=== PATIENT | male | born 1975 | race African-American/Black ===

== ENCOUNTER 2025-01-29 16:14 | Emergency (ER) | payer OTHER, SELFPAY ==
[2025-01-29 16:20] VITALS: BP 155/112; PULSE 88; PULSE 93; RESP 16; TEMP 36.5; O2SAT 98; O2SAT 99; BMI 32.7
--- NOTE | 2025-01-29 16:28 | ED.GENADULT ---
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 Was wearing respirator, but still having respiratory symptoms now. Respirator was a previously used item. Current symptoms: raspy , cough, tight chest, shaky. Dx asthma. 49-year-old man presenting to the emergency department with concern of allergic reaction. Was spraying pesticide called [employer] and began feeling more short of breath tightness chest and shaky. Underlying history of asthma and allergies otherwise. Does use Flonase and takes daily Zyrtec. Albuterol as rescue inhaler. Does have a spot that has shown up on his right forearm when I inquire about rash but that was couple days ago. Unclear etiology. No noted nausea. No abdominal cramping. No fever cough cold symptoms of unusual allergies. Was wearing a respirator. Has also been quite warm outside today. Related Data Home Medications ?Medication ?Instructions ?Recorded ?Confirmed albuterol 90 mcg/actuation aerosol mcg inhalation 01/29/25 inhaler atenolol .ROUTE 01/29/25 cetirizine .ROUTE 01/29/25 Previous Rx's ?Medication ?Instructions ?Recorded albuterol sulfate 90 mcg/actuation 2 inh inhalation Q2-3H PRN 01/29/25 aerosol inhaler shortness of breath or wheezing #6.7 grams prednisone 20 mg tablet 40 mg (2 x 20 mg) PO DAILY 3 days 01/29/25 #6 tabs Allergies Allergy/AdvReac Type Severity Reaction Status Date / Time lisinopril Allergy Unknown Verified 01/29/25 16:19 Review of Systems Status of ROS: Reports: 6 or more systems reviewed and unremarkable except as noted in History and below Exam Narrative: Exam Narrative: Pleasant. Large man. Numerous tattoos. Mildly labored in his breathing. Diminished breath sounds with end-expiratory wheezing and diffuse trace crepitus. Not tachypneic. Heart in regular rate and rhythm without murmur rub or gallop. Extremities well perfused without edema. There is a subcentimeter reddish macule on the right inner mid forearm. Oropharynx is unremarkable other than some cobblestoning. There is no stridor. Const: Vital Signs, click to edit/add: Vital Signs - 24 hr 01/29/25 16:20 Temperature 97.7 F Pulse Rate [Pulse Oximeter] 88 Respiratory Rate 16 Blood Pressure [Ri ght Upper Arm] 155/112 H Pulse Oximetry 99 Oxygen Delivery Me thod Room Air Documenting provider has reviewed patient's vital signs: yes Course Vital Signs Vital signs: Initial Vital Signs Temperature 97.7 F 01/29/25 16:20 Temperature Source Temporal Artery Scan 01/29/25 16:20 Pulse Rate 93 01/29/25 16:20 Respiratory Rate 16 01/29/25 16:20 Blood Pressure 155/112 H 01/29/25 16:20 Blood Pressure Mean 126 H 01/29/25 16:20 Blood Pressure Position Sitting 01/29/25 16:20 Pulse Oximetry 99 01/29/25 16:20 Oxygen Delivery Method Room Air 01/29/25 16:20 Vital Signs Temperature 97.7 F 01/29/25 16:20 Pulse Rate 93 01/29/25 16:20 Respiratory Rate 16 01/29/25 16:20 Blood Pressure 155/112 H 01/29/25 16:20 Pulse Oximetry 99 01/29/25 16:20 Oxygen Delivery Method Room Air 01/29/25 16:20 Temperature 97.7 F 01/29/25 16:20 Pulse Rate 89 01/29/25 17:01 Respiratory Rate 16 01/29/25 16:20 Blood Pressure 154/105 H 01/29/25 17:01 Pulse Oximetry 96 01/29/25 17:01 Oxygen Delivery Method Room Air 01/29/25 16:20 Medications Administered Medications: Discontinued Medications Generic Name Dose Route Start Last Admin Trade Name Freq PRN Reason Stop Dose Admin Albuterol/Ipratropium 1 neb 01/29/25 16:33 01/29/25 16:30 Iprat-Albut 0.5-2.5 Mg/3 Ml Neb IH 01/29/25 16:34 1 neb ONCE ONE Administration Diphenhydramine HCl 50 mg 01/29/25 16:33 01/29/25 16:40 Diphenhydramine 25 Mg Capsule PO 01/29/25 16:34 50 mg ONCE ONE Administration Prednisone 80 mg 01/29/25 16:33 01/29/25 16:41 Prednisone 20 Mg Tablet PO 01/29/25 16:34 80 mg ONCE ONE Administration Medical Decision Making MDM Narrative Medical decision making narrative: Did discuss with poison Control. Recommendations are for treatment as asthma exacerbation at this point. Did receive a DuoNeb. Oral prednisone and diphenhydramine Monitored on oximetry. Overall improved though blood pressure remained a little elevated. Discussed further monitoring verses discharge home. He feels better and would like to go home. See patient discharge plan for further discussion Keep hydrated out there. Sending in prescriptions of albuterol and a course of prednisone with a refill. If symptoms worsening can and not improved with your albuterol, please return. Discharge Plan Discharge Clinical Impression: Allergic reaction, Asthma Patient Disposition: Home w/ Parent or Adult Condition: Improved Additional Instructions: Keep hydrated out there. Sending in prescriptions of albuterol and a course of prednisone with a refill. If symptoms worsening can and not improved with your albuterol, please return. Prescriptions: New prednisone 20 mg tablet 40 mg PO DAILY 3 Days Qty: 6 1RF albuterol sulfate 90 mcg/actuation HFA aerosol inhaler 2 inh inhalation Q2-3H PRN (Reason: shortness of breath or wheezing) Qty: 6.7 1RF No Action cetirizine [Zyrtec] .ROUTE atenolol .ROUTE albuterol 90 mcg/actuation aerosol inhalation Follow Up/Referrals: Provider,Not a Local [Primary Care Provider, Family Practice] Stand Alone Forms: [facility] [place] Info Instructions
[2025-01-29] MEDS: IPRAT-ALBUT 0.5-2.5 MG/3 ML NEB 1 NEB IH (16:30)
[2025-01-29] MEDS: diphenhydrAMINE 25 MG CAPSULE 50 MG PO (16:40)
[2025-01-29] MEDS: predniSONE 20 MG TABLET 80 MG PO (16:41)
[2025-01-29 17:01] VITALS: BP 154/105; PULSE 89; O2SAT 96
== END 2025-01-29 17:54 | disposition home or self-care (01) ==
PROVIDERS: Emergency Provider Family Medicine
DX: J45.901 Unspecified asthma with (acute) exacerbation (principal)
CPT/HCPCS: 94640; 99283; 99284; A9270; J7512